=== PATIENT | female | born 1945 | race Caucasian/White ===

== ENCOUNTER → 2017-12-13 | Outpatient (CLI) | payer BC ==
[2017-12-13 09:03] LABS: EOS # 0.1 (0.04-0.40); EOS % 1.7 % (1.0-5.0); HEMATOCRIT 34.8 % (37.0-47.0); HEMOGLOBIN 11.5 g/dL (12.5-16.0); LYMPH# 1.9 (1.50-4.00); MEAN CELL VOLUME 89 fl (78-100); MEAN CORPUSCULAR HEMOGLOBIN 30 pg (27-31); MEAN CORPUSCULAR HGB CONC 33 g/dL (33-37); MEAN PLATELET VOLUME 9.8 fl (7.4-10.4); MONO # 0.4 (0.20-0.80); NEU # 4.7 (1.40-6.50); PLATELET COUNT 252 K/mm3 (130-400); RED CELL DISTRIBUTION WIDTH 14.7 % (11.5-14.5); WHITE BLOOD COUNT 7.1 K/mm3 (4.8-10.8)
[2017-12-13 09:14] LABS: ALBUMIN 4.2 g/dL (3.5-5.0); BUN/CREATININE RATIO 22.1 (6.0-26.0); CALCIUM 9.9 mg/dL (8.4-10.2); POTASSIUM 3.8 mmol/L (3.6-5.0); TOTAL BILIRUBIN 0.4 mg/dL (0.2-1.3); TOTAL PROTEIN 8.9 g/dL (6.3-8.2)
== END ==
LOC: LAB 08:30
PROVIDERS: Nurse Practitioner Family
DX: Z00.00 Encounter for general adult medical examination without abnormal findings (principal); Z13.220 Encounter for screening for lipoid disorders; I10 Essential (primary) hypertension; R73.01 Impaired fasting glucose; Z12.31 Encounter for screening mammogram for malignant neoplasm of breast; Z78.0 Asymptomatic menopausal state; Z88.8 Allergy status to other drugs, medicaments and biological substances

== ENCOUNTER → 2020-05-22 | Outpatient (CLI) | payer BC ==
[2020-05-22 08:04] LABS: EOS # 0.1 (0.04-0.40); EOS % 1.7 % (1.0-5.0); HEMATOCRIT 34.1 % (37.0-47.0); HEMOGLOBIN 10.7 g/dL (12.5-16.0); LYMPH# 1.7 (1.50-4.00); MEAN CELL VOLUME 91 fl (78-100); MEAN CORPUSCULAR HEMOGLOBIN 29 pg (27-31); MEAN CORPUSCULAR HGB CONC 31 g/dL (33-37); MONO # 0.3 (0.20-0.80); NEU # 3.6 (1.40-6.50); PLATELET COUNT 255 K/mm3 (130-400); RED BLOOD COUNT 3.73 M/mm3 (4.10-5.30); RED CELL DISTRIBUTION WIDTH 14.7 % (11.5-14.5); WHITE BLOOD COUNT 5.8 K/mm3 (4.8-10.8)
[2020-05-22 08:15] LABS: ALBUMIN 4.1 g/dL (3.4-4.8); POTASSIUM 4.3 mmol/L (3.5-5.1)
[2020-05-22 08:16] LABS: CALCIUM 9.4 mg/dL (8.3-10.5)
[2020-05-22 08:17] LABS: TOTAL PROTEIN 7.7 g/dL (6.2-8.1)
[2020-05-22 08:19] LABS: TOTAL BILIRUBIN 0.5 mg/dL (0.2-1.2)
== END ==
LOC: LAB 07:44
PROVIDERS: Physician Assistant
DX: Z12.31 Encounter for screening mammogram for malignant neoplasm of breast (principal); Z13.220 Encounter for screening for lipoid disorders; I10 Essential (primary) hypertension

== ENCOUNTER → 2020-07-02 | Outpatient (CLI) | payer BC | LOC: RAD 07:24 | DX: N18.31 Chronic kidney disease, stage 3a (principal); K80.80 Other cholelithiasis without obstruction ==

== ENCOUNTER → 2020-07-12 | Outpatient (CLI) | payer BC ==
[2020-07-12 08:04] LABS: POTASSIUM 3.9 mmol/L (3.5-5.1)
[2020-07-12 10:02] LABS: URINE APPEARANCE CLOUDY; URINE BILIRUBIN NEGATIVE (NEGATIVE); URINE BLOOD TRACE (NEGATIVE); URINE COLOR YELLOW; URINE GLUCOSE NEGATIVE (NEGATIVE); URINE KETONE NEGATIVE (NEGATIVE); URINE LEUKOCYTE ESTERASE 1+ (NEGATIVE); URINE NITRATE NEGATIVE (NEGATIVE); URINE PROTEIN(semi-quant) TRACE mg/dL (NEGATIVE); URINE UROBILINOGEN NORMAL (NORMAL)
[2020-07-12 10:03] LABS: URINE WBC 31-50 /hpf (0-3)
[2020-07-16 15:37] LABS: A/G RATIO (PEP) 0.88 (()); BETA GLOBULINS (PEP) 1.1 g/dL (0.7-1.2)
[2020-07-16 17:09] LABS: URINE T PROTEIN, RANDOM (PEP) 17 mg/dL (())
== END ==
LOC: LAB 07:11
PROVIDERS: Internal Medicine Nephrology
DX: I12.9 Hypertensive chronic kidney disease with stage 1 through stage 4 chronic kidney disease, or unspecified chronic kidney disease (principal); N18.31 Chronic kidney disease, stage 3a; D63.1 Anemia in chronic kidney disease

== ENCOUNTER → 2021-03-20 | Outpatient (CLI) | payer BC ==
[2021-03-20 07:52] LABS: BASO # 0.03 (0.02-0.10); EOS # 0.08 (0.04-0.40); EOS % 1.3 % (1.0-5.0); HEMATOCRIT 35.2 % (37.0-47.0); HEMOGLOBIN 11.5 g/dL (12.5-16.0); LYMPH# 1.66 (1.50-4.00); MEAN CELL VOLUME 88 fl (78-100); MEAN CORPUSCULAR HEMOGLOBIN 29 pg (27-31); MEAN CORPUSCULAR HGB CONC 33 g/dL (33-37); MEAN PLATELET VOLUME 9.6 fl (7.4-10.4); MONO # 0.31 (0.20-0.80); NEU # 3.99 (1.40-6.50); PLATELET COUNT 217 K/mm3 (130-400); RED CELL DISTRIBUTION WIDTH 14.7 % (11.5-14.5); WHITE BLOOD COUNT 6.1 K/mm3 (4.8-10.8)
[2021-03-20 07:56] LABS: POTASSIUM 3.8 mmol/L (3.5-5.1)
[2021-03-20 07:58] LABS: CALCIUM 9.3 mg/dL (8.3-10.5)
[2021-03-20 07:59] LABS: TOTAL PROTEIN 7.8 g/dL (6.2-8.1)
[2021-03-20 08:01] LABS: TOTAL BILIRUBIN 0.4 mg/dL (0.2-1.2)
== END ==
LOC: LAB 07:12
PROVIDERS: Physician Assistant
DX: Z13.1 Encounter for screening for diabetes mellitus (principal); D64.9 Anemia, unspecified; N18.30 Chronic kidney disease, stage 3 unspecified; E78.5 Hyperlipidemia, unspecified

== ENCOUNTER → 2021-03-27 | Outpatient (CLI) | payer BC ==
[2021-03-27 09:11] LABS: POTASSIUM 4.3 mmol/L (3.5-5.1)
== END ==
LOC: LAB 08:21
PROVIDERS: Internal Medicine Nephrology
DX: N18.31 Chronic kidney disease, stage 3a (principal); D63.1 Anemia in chronic kidney disease

== ENCOUNTER → 2022-05-07 | Outpatient (CLI) | payer MEDICARE, BC ==
[2022-05-07 08:38] LABS: BASO # 0.01 K/mm3 (0.02-0.10); EOS # 0.05 K/mm3 (0.04-0.40); EOS % 0.8 % (1.0-5.0); HEMATOCRIT 37.4 % (37.0-47.0); HEMOGLOBIN 11.9 g/dL (12.5-16.0); LYMPH# 0.95 K/mm3 (1.50-4.00); MEAN CELL VOLUME 91 fl (78-100); MEAN CORPUSCULAR HEMOGLOBIN 29 pg (27-31); MEAN CORPUSCULAR HGB CONC 32 g/dL (33-37); MEAN PLATELET VOLUME 9.4 fl (7.4-10.4); MONO # 0.26 K/mm3 (0.20-0.80); PLATELET COUNT 212 K/mm3 (130-400); RED BLOOD COUNT 4.09 M/mm3 (4.10-5.30); RED CELL DISTRIBUTION WIDTH 13.9 % (11.5-14.5); WHITE BLOOD COUNT 6.4 K/mm3 (4.8-10.8)
[2022-05-07 08:40] LABS: POTASSIUM 3.9 mmol/L (3.5-5.1)
[2022-05-07 08:41] LABS: CALCIUM 10.3 mg/dL (8.3-10.5)
[2022-05-07 08:43] LABS: TOTAL PROTEIN 7.8 g/dL (6.2-8.1)
[2022-05-07 08:44] LABS: TOTAL BILIRUBIN 0.5 mg/dL (0.2-1.2)
== END ==
LOC: LAB 08:03
PROVIDERS: Physician Assistant
DX: Z13.220 Encounter for screening for lipoid disorders (principal); Z13.29 Encounter for screening for other suspected endocrine disorder; Z13.1 Encounter for screening for diabetes mellitus; E78.2 Mixed hyperlipidemia; R73.09 Other abnormal glucose; K90.9 Intestinal malabsorption, unspecified; M10.9 Gout, unspecified; R60.0 Localized edema; I12.9 Hypertensive chronic kidney disease with stage 1 through stage 4 chronic kidney disease, or unspecified chronic kidney disease; N18.30 Chronic kidney disease, stage 3 unspecified; K90.0 Celiac disease

== ENCOUNTER → 2023-05-17 | Outpatient (CLI) | payer MEDICARE, BC ==
[~2023-05-17] MED LIST: ALLOPURINOL300 M1 PO; DITROPAN XL 5MG5 M1 PO; ELIQUIS5 MG PO; FERROUS SULFAT325 M4 PO; LEVOFLOXACIN500 M1 PO; MAXZIDE-25MG TA1 TAB PO; METOPROLOL SUC100 M1 PO; POTASSIUM CHLO10 ME7 PO
[2023-05-17 13:31] LABS: HEMATOCRIT 25.9 % (37.0-47.0); HEMOGLOBIN 8.1 g/dL (12.5-16.0); MEAN CELL VOLUME 103 fl (78-100); MEAN CORPUSCULAR HEMOGLOBIN 32 pg (27-31); MEAN CORPUSCULAR HGB CONC 31 g/dL (33-37); MEAN PLATELET VOLUME 9.4 fl (7.4-10.4); PLATELET COUNT 187 K/mm3 (130-400); RED BLOOD COUNT 2.52 M/mm3 (4.10-5.30); RED CELL DISTRIBUTION WIDTH 18.9 % (11.5-14.5); WHITE BLOOD COUNT 4.5 K/mm3 (4.8-10.8)
[2023-05-17 13:36] LABS: ALBUMIN 3.3 g/dL (3.4-4.8)
[2023-05-17 13:37] LABS: POTASSIUM 4.3 mmol/L (3.5-5.1)
[2023-05-17 13:38] LABS: CALCIUM 8.9 mg/dL (8.3-10.5)
[2023-05-17 13:39] LABS: TOTAL PROTEIN 5.8 g/dL (6.2-8.1)
[2023-05-17 13:41] LABS: TOTAL BILIRUBIN 0.5 mg/dL (0.2-1.2)
[2023-05-17 14:38] LABS: LYMPHOCYTE 5 % (20-51); METAMYELOCYTE 1 % (0-0); MONOCYTE 5 % (3-10); NEUTROPHILS 88 % (42-75)
[2023-05-17 14:39] LABS: TEAR DROP CELLS 2+
== END ==
LOC: LAB 13:04
PROVIDERS: Internal Medicine
DX: C81.71 Other Hodgkin lymphoma, lymph nodes of head, face, and neck (principal)

== ENCOUNTER → 2023-05-24 | Outpatient (CLI) | payer MEDICARE, BC ==
[2023-05-24 15:21] LABS: HEMATOCRIT 22.2 % (37.0-47.0); MEAN CELL VOLUME 103 fl (78-100); MEAN CORPUSCULAR HEMOGLOBIN 33 pg (27-31); MEAN CORPUSCULAR HGB CONC 32 g/dL (33-37); MEAN PLATELET VOLUME 12.4 fl (7.4-10.4); RED CELL DISTRIBUTION WIDTH 17.5 % (11.5-14.5); WHITE BLOOD COUNT 8.8 K/mm3 (4.8-10.8)
[2023-05-24 15:23] LABS: RED BLOOD COUNT 2.15 M/mm3 (4.10-5.30)
[2023-05-24 15:25] LABS: ALBUMIN 2.9 g/dL (3.4-4.8); PLATELET COUNT 42 K/mm3 (130-400); POTASSIUM 4.6 mmol/L (3.5-5.1)
[2023-05-24 15:26] LABS: CALCIUM 8.7 mg/dL (8.3-10.5)
[2023-05-24 15:57] LABS: NEUTROPHILS 94 % (42-75)
[2023-05-24 15:58] LABS: LYMPHOCYTE 5 % (20-51); METAMYELOCYTE 1 % (0-0); TEAR DROP CELLS 1+; TOXIC GRANULATION PRESENT
[2023-05-24 16:07] LABS: TOTAL BILIRUBIN 0.4 mg/dL (0.2-1.2)
== END ==
LOC: LAB 14:58
PROVIDERS: Internal Medicine
DX: C81.71 Other Hodgkin lymphoma, lymph nodes of head, face, and neck (principal)

== ENCOUNTER → 2023-06-21 | Outpatient (CLI) | payer MEDICARE, BC ==
[2023-06-21 12:35] LABS: MEAN CELL VOLUME 102 fl (78-100); MEAN CORPUSCULAR HEMOGLOBIN 33 pg (27-31); MEAN CORPUSCULAR HGB CONC 32 g/dL (33-37); MEAN PLATELET VOLUME 11.3 fl (7.4-10.4); RED CELL DISTRIBUTION WIDTH 16.6 % (11.5-14.5); WHITE BLOOD COUNT 13.1 K/mm3 (4.8-10.8)
[2023-06-21 12:49] LABS: ALBUMIN 3.2 g/dL (3.4-4.8); POTASSIUM 3.1 mmol/L (3.5-5.1)
[2023-06-21 12:50] LABS: CALCIUM 9.1 mg/dL (8.3-10.5); HEMOGLOBIN 6.8 g/dL (12.5-16.0); RED BLOOD COUNT 2.05 M/mm3 (4.10-5.30)
[2023-06-21 12:51] LABS: TOTAL PROTEIN 5.4 g/dL (6.2-8.1)
[2023-06-21 12:53] LABS: TOTAL BILIRUBIN 0.3 mg/dL (0.2-1.2)
[2023-06-21 13:39] LABS: LYMPHOCYTE 15 % (20-51); NEUTROPHILS 71 % (42-75)
[2023-06-21 13:41] LABS: HYPOCHROMIA 1+; MONOCYTE 14 % (3-10); NUCLEATED RED BLOOD CELL 1 (0-6); POLYCHROMASIA 1+
[2023-06-21 13:43] LABS: PLATELET COUNT 109 K/mm3 (130-400)
== END ==
LOC: AMSURD 11:29 → LAB 11:29
PROVIDERS: Internal Medicine
DX: C81.71 Other Hodgkin lymphoma, lymph nodes of head, face, and neck (principal)

== ENCOUNTER → 2023-06-28 | Outpatient (CLI) | payer MEDICARE, BC ==
[2023-06-28 16:12] LABS: BASO # 0.01 K/mm3 (0.02-0.10); EOS # 0.01 K/mm3 (0.04-0.40); EOS % 0.1 % (1.0-5.0); HEMATOCRIT 29.7 % (37.0-47.0); HEMOGLOBIN 9.4 g/dL (12.5-16.0); LYMPH# 0.87 K/mm3 (1.50-4.00); MEAN CELL VOLUME 104 fl (78-100); MEAN CORPUSCULAR HEMOGLOBIN 33 pg (27-31); MEAN CORPUSCULAR HGB CONC 32 g/dL (33-37); MEAN PLATELET VOLUME 10.1 fl (7.4-10.4); NEU # 8.74 K/mm3 (1.40-6.50); PLATELET COUNT 122 K/mm3 (130-400); RED BLOOD COUNT 2.86 M/mm3 (4.10-5.30); RED CELL DISTRIBUTION WIDTH 19.2 % (11.5-14.5); WHITE BLOOD COUNT 10.8 K/mm3 (4.8-10.8)
[2023-06-28 16:16] LABS: ALBUMIN 3.1 g/dL (3.4-4.8)
[2023-06-28 16:17] LABS: CALCIUM 8.3 mg/dL (8.3-10.5)
[2023-06-28 16:19] LABS: TOTAL PROTEIN 5.3 g/dL (6.2-8.1)
[2023-06-28 16:21] LABS: TOTAL BILIRUBIN 0.5 mg/dL (0.2-1.2)
== END ==
LOC: LAB 15:52
PROVIDERS: Internal Medicine
DX: C81.71 Other Hodgkin lymphoma, lymph nodes of head, face, and neck (principal)

== ENCOUNTER → 2023-07-05 | Outpatient (CLI) | payer MEDICARE, BC ==
[2023-07-05 16:14] LABS: HEMATOCRIT 25.3 % (37.0-47.0); MEAN CELL VOLUME 106 fl (78-100); MEAN CORPUSCULAR HEMOGLOBIN 34 pg (27-31); MEAN CORPUSCULAR HGB CONC 32 g/dL (33-37); MEAN PLATELET VOLUME 12.5 fl (7.4-10.4); RED BLOOD COUNT 2.39 M/mm3 (4.10-5.30); RED CELL DISTRIBUTION WIDTH 18.3 % (11.5-14.5); WHITE BLOOD COUNT 6.1 K/mm3 (4.8-10.8)
[2023-07-05 16:17] LABS: PLATELET COUNT 30 K/mm3 (130-400)
[2023-07-05 16:19] LABS: ALBUMIN 3.3 g/dL (3.4-4.8)
[2023-07-05 16:21] LABS: CALCIUM 9.1 mg/dL (8.3-10.5)
[2023-07-05 16:22] LABS: TOTAL PROTEIN 5.6 g/dL (6.2-8.1)
[2023-07-05 16:24] LABS: TOTAL BILIRUBIN 0.8 mg/dL (0.2-1.2)
[2023-07-05 16:44] LABS: BAND 3 % (0-10); LYMPHOCYTE 9 % (20-51); NEUTROPHILS 88 % (42-75)
[2023-07-05 16:45] LABS: TEAR DROP CELLS 2+
[2023-07-05 16:46] LABS: TOXIC GRANULATION PRESENT
== END ==
LOC: LAB 15:56
PROVIDERS: Internal Medicine
DX: C81.71 Other Hodgkin lymphoma, lymph nodes of head, face, and neck (principal)

== ENCOUNTER → 2023-07-07 | Outpatient (CLI) | payer MEDICARE, BC | LOC: LAB 08:29 | DX: C81.71 Other Hodgkin lymphoma, lymph nodes of head, face, and neck (principal) ==

== ENCOUNTER → 2023-08-04 | Outpatient (CLI) | payer MEDICARE, BC ==
[~2023-08-04] VITALS: Ht 170.2 cm; Wt 70.6 kg
[2023-08-04] VITALS (9 sets, daily range): BP systolic 132–153; BP diastolic 61–75
== END ==
LOC: AMSURD 08-03 16:21
DX: C81.71 Other Hodgkin lymphoma, lymph nodes of head, face, and neck (principal)
CPT/HCPCS: P9040

== ENCOUNTER → 2023-08-07 | Outpatient (CLI) | payer MEDICARE, BC ==
[2023-08-07 11:05] LABS: HEMATOCRIT 29.3 % (37.0-47.0); HEMOGLOBIN 9.5 g/dL (12.5-16.0); MEAN CELL VOLUME 106 fl (78-100); MEAN CORPUSCULAR HEMOGLOBIN 34 pg (27-31); MEAN CORPUSCULAR HGB CONC 32 g/dL (33-37); MEAN PLATELET VOLUME 9.3 fl (7.4-10.4); PLATELET COUNT 113 K/mm3 (130-400); RED BLOOD COUNT 2.77 M/mm3 (4.10-5.30); RED CELL DISTRIBUTION WIDTH 20.5 % (11.5-14.5); WHITE BLOOD COUNT 10.9 K/mm3 (4.8-10.8)
[2023-08-07 11:16] LABS: ALBUMIN 3.3 g/dL (3.4-4.8)
[2023-08-07 11:17] LABS: CALCIUM 8.5 mg/dL (8.3-10.5)
[2023-08-07 11:18] LABS: TOTAL PROTEIN 5.5 g/dL (6.2-8.1)
[2023-08-07 11:20] LABS: TOTAL BILIRUBIN 0.5 mg/dL (0.2-1.2)
[2023-08-07 11:30] LABS: NEUTROPHILS 88 % (42-75)
[2023-08-07 11:31] LABS: LYMPHOCYTE 6 % (20-51); MONOCYTE 5 % (3-10)
== END ==
LOC: LAB 10:52
PROVIDERS: Internal Medicine
DX: C81.71 Other Hodgkin lymphoma, lymph nodes of head, face, and neck (principal)

== ENCOUNTER → 2023-09-07 | Outpatient (CLI) | payer MEDICARE, BC ==
[2023-09-07 16:20] LABS: ALBUMIN 3.7 g/dL (3.4-4.8)
[2023-09-07 16:21] LABS: HEMATOCRIT 25.4 % (37.0-47.0); HEMOGLOBIN 8.2 g/dL (12.5-16.0); MEAN CELL VOLUME 108 fl (78-100); MEAN CORPUSCULAR HEMOGLOBIN 35 pg (27-31); MEAN CORPUSCULAR HGB CONC 32 g/dL (33-37); MEAN PLATELET VOLUME 11.4 fl (7.4-10.4); RED BLOOD COUNT 2.35 M/mm3 (4.10-5.30); WHITE BLOOD COUNT 4.8 K/mm3 (4.8-10.8)
[2023-09-07 16:22] LABS: CALCIUM 9.4 mg/dL (8.3-10.5)
[2023-09-07 16:23] LABS: TOTAL PROTEIN 5.9 g/dL (6.2-8.1)
[2023-09-07 16:25] LABS: PLATELET COUNT 38 K/mm3 (130-400); TOTAL BILIRUBIN 0.5 mg/dL (0.2-1.2)
[2023-09-07 16:47] LABS: BAND 9 % (0-10); HYPOCHROMIA 2+; LYMPHOCYTE 12 % (20-51); METAMYELOCYTE 2 % (0-0); MONOCYTE 2 % (3-10); NEUTROPHILS 75 % (42-75)
[2023-09-07 16:48] LABS: OVALOCYTES 1+; TEAR DROP CELLS 1+
== END ==
LOC: LAB 15:52
PROVIDERS: Internal Medicine
DX: C81.71 Other Hodgkin lymphoma, lymph nodes of head, face, and neck (principal)

== ENCOUNTER → 2023-09-13 | Outpatient (CLI) | payer MEDICARE, BC ==
[2023-09-13 11:48] LABS: HEMATOCRIT 24.4 % (37.0-47.0); HEMOGLOBIN 7.9 g/dL (12.5-16.0); MEAN CELL VOLUME 108 fl (78-100); MEAN CORPUSCULAR HEMOGLOBIN 35 pg (27-31); MEAN CORPUSCULAR HGB CONC 32 g/dL (33-37); MEAN PLATELET VOLUME 10.7 fl (7.4-10.4); PLATELET COUNT 91 K/mm3 (130-400); RED CELL DISTRIBUTION WIDTH 18.9 % (11.5-14.5); WHITE BLOOD COUNT 12.4 K/mm3 (4.8-10.8)
[2023-09-13 11:53] LABS: RED BLOOD COUNT 2.25 M/mm3 (4.10-5.30)
[2023-09-13 12:07] LABS: ALBUMIN 3.7 g/dL (3.4-4.8)
[2023-09-13 12:08] LABS: CALCIUM 9.3 mg/dL (8.3-10.5)
[2023-09-13 12:11] LABS: TOTAL BILIRUBIN 0.4 mg/dL (0.2-1.2)
[2023-09-13 12:44] LABS: BAND 9 % (0-10); HYPOCHROMIA 2+; LYMPHOCYTE 8 % (20-51); METAMYELOCYTE 5 % (0-0); MONOCYTE 9 % (3-10); MYELOCYTE 1 % (0-0); NEUTROPHILS 68 % (42-75)
[2023-09-13 12:45] LABS: OVALOCYTES 2+; SCHISTOCYTES 2+; TEAR DROP CELLS 1+
== END ==
LOC: LAB 11:34
PROVIDERS: Internal Medicine
DX: C81.71 Other Hodgkin lymphoma, lymph nodes of head, face, and neck (principal)

== ENCOUNTER → 2023-09-27 | Outpatient (CLI) | payer MEDICARE, BC ==
[2023-09-27 15:14] LABS: HEMATOCRIT 30.8 % (37.0-47.0); HEMOGLOBIN 9.9 g/dL (12.5-16.0); MEAN CELL VOLUME 110 fl (78-100); MEAN CORPUSCULAR HEMOGLOBIN 35 pg (27-31); MEAN CORPUSCULAR HGB CONC 32 g/dL (33-37); MEAN PLATELET VOLUME 11.2 fl (7.4-10.4); RED BLOOD COUNT 2.81 M/mm3 (4.10-5.30); RED CELL DISTRIBUTION WIDTH 18.1 % (11.5-14.5); WHITE BLOOD COUNT 11.4 K/mm3 (4.8-10.8)
[2023-09-27 15:17] LABS: ALBUMIN 3.7 g/dL (3.4-4.8)
[2023-09-27 15:18] LABS: CALCIUM 9.5 mg/dL (8.3-10.5)
[2023-09-27 15:19] LABS: PLATELET COUNT 39 K/mm3 (130-400); TOTAL PROTEIN 5.7 g/dL (6.2-8.1)
[2023-09-27 15:21] LABS: TOTAL BILIRUBIN 0.5 mg/dL (0.2-1.2)
[2023-09-27 15:39] LABS: BAND 9 % (0-10)
[2023-09-27 15:40] LABS: LYMPHOCYTE 7 % (20-51); MONOCYTE 1 % (3-10); NEUTROPHILS 83 % (42-75)
[2023-09-27 15:41] LABS: HYPOCHROMIA 1+; MYELOCYTE 1 % (0-0)
[2023-09-27 15:42] LABS: OVALOCYTES 1+; SCHISTOCYTES 1+; TEAR DROP CELLS 1+
== END ==
LOC: LAB 14:56
PROVIDERS: Internal Medicine
DX: C81.71 Other Hodgkin lymphoma, lymph nodes of head, face, and neck (principal)

== ENCOUNTER → 2023-10-04 | Outpatient (CLI) | payer MEDICARE, BC ==
[2023-10-04 10:57] LABS: HEMATOCRIT 27.9 % (37.0-47.0); HEMOGLOBIN 9.1 g/dL (12.5-16.0); MEAN CELL VOLUME 108 fl (78-100); MEAN CORPUSCULAR HEMOGLOBIN 35 pg (27-31); MEAN CORPUSCULAR HGB CONC 33 g/dL (33-37); MEAN PLATELET VOLUME 10.8 fl (7.4-10.4); PLATELET COUNT 99 K/mm3 (130-400); RED BLOOD COUNT 2.58 M/mm3 (4.10-5.30); RED CELL DISTRIBUTION WIDTH 17.8 % (11.5-14.5); WHITE BLOOD COUNT 11.4 K/mm3 (4.8-10.8)
[2023-10-04 11:16] LABS: ALBUMIN 3.7 g/dL (3.4-4.8)
[2023-10-04 11:17] LABS: CALCIUM 9.2 mg/dL (8.3-10.5)
[2023-10-04 11:18] LABS: TOTAL PROTEIN 6.1 g/dL (6.2-8.1)
[2023-10-04 11:23] LABS: BAND 9 % (0-10); LYMPHOCYTE 8 % (20-51); METAMYELOCYTE 1 % (0-0); MONOCYTE 10 % (3-10); MYELOCYTE 1 % (0-0); NEUTROPHILS 71 % (42-75)
[2023-10-04 11:24] LABS: OVALOCYTES 1+; SCHISTOCYTES 1+; TEAR DROP CELLS 1+
[2023-10-04 11:59] LABS: TOTAL BILIRUBIN 0.44 mg/dL (0.2-1.2)
== END ==
LOC: LAB 10:43
PROVIDERS: Internal Medicine
DX: C81.71 Other Hodgkin lymphoma, lymph nodes of head, face, and neck (principal)

== ENCOUNTER → 2023-10-11 | Outpatient (CLI) | payer MEDICARE, BC ==
[2023-10-11 16:22] LABS: BASO # 0.01 K/mm3 (0.02-0.10); EOS # 0.04 K/mm3 (0.04-0.40); EOS % 0.4 % (1.0-5.0); HEMOGLOBIN 9.5 g/dL (12.5-16.0); LYMPH# 0.97 K/mm3 (1.50-4.00); MEAN CELL VOLUME 111 fl (78-100); MEAN CORPUSCULAR HEMOGLOBIN 35 pg (27-31); MEAN CORPUSCULAR HGB CONC 32 g/dL (33-37); MEAN PLATELET VOLUME 9.9 fl (7.4-10.4); MONO # 0.45 K/mm3 (0.20-0.80); NEU # 8.59 K/mm3 (1.40-6.50); PLATELET COUNT 108 K/mm3 (130-400); RED BLOOD COUNT 2.71 M/mm3 (4.10-5.30); RED CELL DISTRIBUTION WIDTH 17.6 % (11.5-14.5); WHITE BLOOD COUNT 10.3 K/mm3 (4.8-10.8)
[2023-10-11 16:24] LABS: CALCIUM 9.7 mg/dL (8.3-10.5)
[2023-10-11 16:25] LABS: TOTAL PROTEIN 6.6 g/dL (6.2-8.1)
[2023-10-11 16:27] LABS: TOTAL BILIRUBIN 0.6 mg/dL (0.2-1.2)
== END ==
LOC: LAB 16:00
PROVIDERS: Internal Medicine
DX: C81.71 Other Hodgkin lymphoma, lymph nodes of head, face, and neck (principal)

== ENCOUNTER 2023-11-02 09:30 | Outpatient (RCR) | payer MEDICARE, BC | END 2023-11-04 | disposition home or self-care (01) | LOC: PT | DX: R53.83 Other fatigue (principal); T45.1X5S Adverse effect of antineoplastic and immunosuppressive drugs, sequela ==

== ENCOUNTER 2023-12-06 08:00 | Outpatient (RCR) | payer MEDICARE, BC | END 2024-01-04 | disposition home or self-care (01) | LOC: PT | DX: R53.83 Other fatigue (principal); T45.1X5S Adverse effect of antineoplastic and immunosuppressive drugs, sequela; C81.90 Hodgkin lymphoma, unspecified, unspecified site ==

== ENCOUNTER → 2024-01-03 | Outpatient (CLI) | payer MEDICARE, BC | LOC: RAD 09:25 → MAMMO 09:30 → RAD 09:30 | DX: Z13.820 Encounter for screening for osteoporosis (principal); M85.851 Other specified disorders of bone density and structure, right thigh; M85.852 Other specified disorders of bone density and structure, left thigh ==

== ENCOUNTER → 2024-01-03 | Outpatient (CLI) | payer MEDICARE, BC | LOC: MAMMO 09:00 | DX: Z12.31 Encounter for screening mammogram for malignant neoplasm of breast (principal) ==

== ENCOUNTER → 2024-01-03 | Outpatient (CLI) | payer MEDICARE, BC ==
[2024-01-03 10:11] LABS: EOS # 0.07 K/mm3 (0.04-0.40); EOS % 1.9 % (1.0-5.0); HEMATOCRIT 39.7 % (37.0-47.0); HEMOGLOBIN 13.3 g/dL (12.5-16.0); LYMPH# 0.71 K/mm3 (1.50-4.00); MEAN CELL VOLUME 105 fl (78-100); MEAN CORPUSCULAR HEMOGLOBIN 35 pg (27-31); MEAN CORPUSCULAR HGB CONC 34 g/dL (33-37); MONO # 0.23 K/mm3 (0.20-0.80); NEU # 2.76 K/mm3 (1.40-6.50); RED CELL DISTRIBUTION WIDTH 12.1 % (11.5-14.5); WHITE BLOOD COUNT 3.8 K/mm3 (4.8-10.8)
[2024-01-03 10:16] LABS: ALBUMIN 4.2 g/dL (3.4-4.8)
[2024-01-03 10:17] LABS: CALCIUM 9.9 mg/dL (8.3-10.5)
[2024-01-03 10:18] LABS: TOTAL PROTEIN 7.3 g/dL (6.2-8.1)
[2024-01-03 10:20] LABS: TOTAL BILIRUBIN 0.7 mg/dL (0.2-1.2)
[2024-01-03 10:40] LABS: PLATELET COUNT 85 K/mm3 (130-400)
== END ==
LOC: LAB 09:15
PROVIDERS: Physician Assistant
DX: Z00.00 Encounter for general adult medical examination without abnormal findings (principal); Z13.29 Encounter for screening for other suspected endocrine disorder; D64.9 Anemia, unspecified; K90.9 Intestinal malabsorption, unspecified

== ENCOUNTER → 2024-04-14 | Outpatient (CLI) | payer MEDICARE, BC ==
[2024-04-14 15:03] LABS: BASO # 0.01 K/mm3 (0.02-0.10); EOS # 0.06 K/mm3 (0.04-0.40); EOS % 1.5 % (1.0-5.0); HEMATOCRIT 34.4 % (37.0-47.0); HEMOGLOBIN 11.5 g/dL (12.5-16.0); LYMPH# 1.18 K/mm3 (1.50-4.00); MEAN CELL VOLUME 104 fl (78-100); MEAN CORPUSCULAR HEMOGLOBIN 35 pg (27-31); MEAN CORPUSCULAR HGB CONC 33 g/dL (33-37); MEAN PLATELET VOLUME 9.3 fl (7.4-10.4); MONO # 0.35 K/mm3 (0.20-0.80); NEU # 2.45 K/mm3 (1.40-6.50); PLATELET COUNT 87 K/mm3 (130-400); RED BLOOD COUNT 3.31 M/mm3 (4.10-5.30); RED CELL DISTRIBUTION WIDTH 12.9 % (11.5-14.5); WHITE BLOOD COUNT 4.1 K/mm3 (4.8-10.8)
[2024-04-14 15:08] LABS: CALCIUM 9.7 mg/dL (8.3-10.5)
[2024-04-14 15:09] LABS: TOTAL PROTEIN 6.6 g/dL (6.2-8.1)
[2024-04-14 15:11] LABS: TOTAL BILIRUBIN 0.6 mg/dL (0.2-1.2)
== END ==
LOC: LAB 14:47
PROVIDERS: Internal Medicine
DX: C81.71 Other Hodgkin lymphoma, lymph nodes of head, face, and neck (principal)

== ENCOUNTER → 2024-06-09 | Outpatient (CLI) | payer MEDICARE, BC ==
[2024-06-09 09:18] LABS: CALCIUM 9.5 mg/dL (8.3-10.5)
== END ==
LOC: LAB 08:37
PROVIDERS: Internal Medicine Nephrology
DX: I12.9 Hypertensive chronic kidney disease with stage 1 through stage 4 chronic kidney disease, or unspecified chronic kidney disease (principal); N18.31 Chronic kidney disease, stage 3a

== ENCOUNTER → 2024-10-16 | Outpatient (CLI) | payer MEDICARE, BC ==
[2024-10-16 11:34] LABS: BASO # 0.01 K/mm3 (0.02-0.10); EOS # 0.06 K/mm3 (0.04-0.40); EOS % 1.5 % (1.0-5.0); HEMATOCRIT 35.4 % (37.0-47.0); HEMOGLOBIN 11.6 g/dL (12.5-16.0); LYMPH# 1.03 K/mm3 (1.50-4.00); MEAN CELL VOLUME 107 fl (78-100); MEAN CORPUSCULAR HEMOGLOBIN 35 pg (27-31); MEAN CORPUSCULAR HGB CONC 33 g/dL (33-37); MEAN PLATELET VOLUME 9.8 fl (7.4-10.4); MONO # 0.25 K/mm3 (0.20-0.80); PLATELET COUNT 88 K/mm3 (130-400); RED CELL DISTRIBUTION WIDTH 13.3 % (11.5-14.5); WHITE BLOOD COUNT 4.1 K/mm3 (4.8-10.8)
[2024-10-16 11:38] LABS: ALBUMIN 4.2 g/dL (3.4-4.8)
[2024-10-16 11:40] LABS: CALCIUM 9.8 mg/dL (8.3-10.5)
[2024-10-16 11:41] LABS: TOTAL PROTEIN 7.5 g/dL (6.2-8.1)
[2024-10-16 11:43] LABS: TOTAL BILIRUBIN 0.7 mg/dL (0.2-1.2)
== END ==
LOC: LAB 11:13
PROVIDERS: Nurse Practitioner Family
DX: C81.71 Other Hodgkin lymphoma, lymph nodes of head, face, and neck (principal)

== ENCOUNTER → 2024-12-08 | Outpatient (CLI) | payer MEDICARE, BC ==
[2024-12-08 13:08] LABS: BASO # 0.01 K/mm3 (0.02-0.10); EOS # 0.06 K/mm3 (0.04-0.40); EOS % 1.5 % (1.0-5.0); HEMATOCRIT 33.9 % (37.0-47.0); HEMOGLOBIN 11.5 g/dL (12.5-16.0); LYMPH# 0.95 K/mm3 (1.50-4.00); MEAN CELL VOLUME 107 fl (78-100); MEAN CORPUSCULAR HEMOGLOBIN 36 pg (27-31); MEAN CORPUSCULAR HGB CONC 34 g/dL (33-37); MEAN PLATELET VOLUME 10.1 fl (7.4-10.4); MONO # 0.27 K/mm3 (0.20-0.80); NEU # 2.71 K/mm3 (1.40-6.50); RED BLOOD COUNT 3.18 M/mm3 (4.10-5.30); RED CELL DISTRIBUTION WIDTH 13.6 % (11.5-14.5)
[2024-12-08 14:18] LABS: PLATELET COUNT 86 K/mm3 (130-400)
[2024-12-08 15:53] LABS: CALCIUM 8.9 mg/dL (8.3-10.5)
== END ==
LOC: LAB 12:28
PROVIDERS: Internal Medicine Nephrology
DX: I12.9 Hypertensive chronic kidney disease with stage 1 through stage 4 chronic kidney disease, or unspecified chronic kidney disease (principal); N18.31 Chronic kidney disease, stage 3a